=== PATIENT | male | born 1975 | race Caucasian/White ===

== ENCOUNTER → 2017-09-25 | Outpatient (CLI) | payer OTHER | LOC: COL.RAD 10:15 | DX: M22.41 Chondromalacia patellae, right knee (principal); Z98.890 Other specified postprocedural states ==

== ENCOUNTER 2017-10-01 14:26 | Outpatient (RCR) | payer OTHER | END 2017-10-02 09:26 | disposition home or self-care (01) | LOC: WSOH 14:26 | DX: M25.561 Pain in right knee (principal) ==